=== PATIENT | female | born 1965 | race Caucasian/White ===

== ENCOUNTER 2016-11-10 20:55 | Inpatient (IN) | payer MEDICAID, SELFPAY ==
[~2016-11-10] VITALS: Ht 165.1 cm; Wt 106.3 kg
[2016-11-10] MEDS: LACTULOSE SOLN 20GM/30ML UDC PO SCH (23:20)
[2016-11-10] MEDS ORDERED: ONDANSETRON 4 MG VIAL IV PRN (23:20)
[2016-11-10] MEDS ORDERED: SALINE FLUSH 10 ML FLUSH PRN (23:20)
[2016-11-10] MEDS ORDERED: PHARMACY TO DOSE LEVAQUIN IV SCH (23:20)
[2016-11-11] VITALS (8 sets, daily range): BP systolic 120–149; RESP 14–20; TEMP 97.6–98; Ht 165.1 cm; Wt 106.3 kg
[2016-11-11] MEDS ORDERED: CEFTRIAXONE 1 GM VIAL ONE (00:02)
[2016-11-11] MEDS ORDERED: ZIPRASIDONE 20 MG INJ IM ONE (00:02)
[2016-11-11] MEDS ORDERED: SODIUM CHLORIDE 0.9% 100 ML IV ONE (00:02)
[2016-11-11] MEDS ORDERED: LACTULOSE SOLN 20GM/30ML UDC PO ONE (00:15)
[2016-11-11] MEDS: SALINE FLUSH 10 ML FLUSH SCH ×3 (02:54→20:07)
[2016-11-11] MEDS: LEVOFLOXACIN 750 MG/150 ML 150 ML IV SCH ×2 (02:56→10:03)
[2016-11-11] MEDS: SODIUM CHLORIDE 0.9% FLUSH BAG 500 ML IV SCH (02:57)
[2016-11-11] MEDS ORDERED: *PINK BRACELET XX ONE (04:35)
[2016-11-11] MEDS ORDERED: MISSING DOSE XX ONE (08:50)
[2016-11-11] MEDS: BUPROPION XL 150 MG TAB PO SCH (10:02)
[2016-11-11] MEDS: LACTULOSE SOLN 20GM/30ML UDC PO SCH ×3 (10:02→20:07)
[2016-11-11] MEDS: KCL CR 20 MEQ TAB PO SCH (10:03)
[2016-11-11] MEDS: *HOME MEDS KEPT IN PHARMACY XX SCH ×2 (10:03→20:00)
[2016-11-11] MEDS: Furosemide 40 MG TAB PO SCH (10:03)
[2016-11-12 03:48] VITALS: BP_SYST 131; RESP 16; TEMP 98.3
[2016-11-12] MEDS: SODIUM CHLORIDE 0.9% FLUSH BAG 500 ML IV SCH (06:45)
[2016-11-12 07:22] VITALS: BP_SYST 133; RESP 18; TEMP 97.6
[2016-11-12] MEDS: *HOME MEDS KEPT IN PHARMACY XX SCH ×2 (08:00→20:00)
[2016-11-12] MEDS: SALINE FLUSH 10 ML FLUSH SCH ×2 (09:34→20:28)
[2016-11-12] MEDS: LACTULOSE SOLN 20GM/30ML UDC PO SCH ×3 (09:35→20:28)
[2016-11-12] MEDS: LEVOFLOXACIN 750 MG/150 ML 150 ML IV SCH (09:35)
[2016-11-12] MEDS: BUPROPION XL 150 MG TAB PO SCH (09:35)
[2016-11-12] MEDS: KCL CR 20 MEQ TAB PO SCH (09:35)
[2016-11-12] MEDS: Furosemide 40 MG TAB PO SCH (09:35)
[2016-11-12 10:49] VITALS: BP_SYST 139; RESP 18; TEMP 97.5
[2016-11-12 14:56] VITALS: BP_SYST 143; RESP 18; TEMP 97.4
[2016-11-12 19:20] VITALS: BP_SYST 130; RESP 16; TEMP 97.6
[2016-11-12 23:00] VITALS: BP_SYST 147; RESP 14; TEMP 97.9
[2016-11-13] MEDS: RIFAXIMIN 550 MG TAB PO SCH ×3 (00:34→20:24)
[2016-11-13 04:00] VITALS: BP_SYST 124; RESP 14; TEMP 98.2
[2016-11-13] MEDS: SODIUM CHLORIDE 0.9% FLUSH BAG 500 ML IV SCH (06:21)
[2016-11-13 07:07] VITALS: BP_SYST 133; RESP 16; TEMP 97.9
[2016-11-13] MEDS: *HOME MEDS KEPT IN PHARMACY XX SCH ×2 (08:00→20:00)
[2016-11-13] MEDS: LEVOFLOXACIN 750 MG/150 ML 150 ML IV SCH (08:25)
[2016-11-13] MEDS: BUPROPION XL 150 MG TAB PO SCH (08:27)
[2016-11-13] MEDS: SALINE FLUSH 10 ML FLUSH SCH ×2 (08:27→20:24)
[2016-11-13] MEDS: LACTULOSE SOLN 20GM/30ML UDC PO SCH ×3 (08:27→20:23)
[2016-11-13] MEDS: KCL CR 20 MEQ TAB PO SCH (08:27)
[2016-11-13] MEDS: Furosemide 40 MG TAB PO SCH (08:28)
[2016-11-13 10:39] VITALS: BP_SYST 130; RESP 16; TEMP 97.6
[2016-11-13 15:09] VITALS: BP_SYST 138; RESP 16; TEMP 98.2
[2016-11-13] MEDS ORDERED: [UNRECOGNIZED DRUG - OTHER] IV ONE (17:51)
[2016-11-13 19:12] VITALS: BP_SYST 137; RESP 18; TEMP 97.6
[2016-11-13] MEDS: OXYCODONE 5 MG TAB PO PRN (21:26)
[2016-11-13 23:22] VITALS: BP_SYST 124; RESP 18; TEMP 98
[2016-11-14] MEDS: OXYCODONE 5 MG TAB PO PRN ×2 (04:16→10:52)
[2016-11-14 04:19] VITALS: BP_SYST 108; RESP 18; TEMP 98
[2016-11-14] MEDS: SODIUM CHLORIDE 0.9% FLUSH BAG 500 ML IV SCH (05:43)
[2016-11-14 07:20] VITALS: BP_SYST 137; RESP 18; TEMP 97.6
[2016-11-14] MEDS: KCL CR 20 MEQ TAB PO SCH (07:57)
[2016-11-14] MEDS: BUPROPION XL 150 MG TAB PO SCH (07:57)
[2016-11-14] MEDS: RIFAXIMIN 550 MG TAB PO SCH (07:57)
[2016-11-14] MEDS: LACTULOSE SOLN 20GM/30ML UDC PO SCH ×2 (07:57→16:21)
[2016-11-14] MEDS: *HOME MEDS KEPT IN PHARMACY XX SCH ×2 (08:00→18:19)
[2016-11-14] MEDS: SALINE FLUSH 10 ML FLUSH SCH (08:05)
[2016-11-14 11:06] VITALS: BP_SYST 144; RESP 18; TEMP 97.4
[2016-11-14 14:57] VITALS: BP_SYST 136; RESP 16; TEMP 97.6
[2016-11-14 17:52] VITALS: BP_SYST 136; RESP 16; TEMP 97.6
== END 2016-11-14 18:27 | disposition home or self-care (01) | DRG 441 ==
LOC: ENRESERVDT → ENRESERVTM → ER 20:55 → ENPENDDIS 23:16 → EMR 23:16 → 5THW 11-11 01:40
PROVIDERS: ADMIT Family Medicine; ATTEND Family Medicine
DX: K72.90 Hepatic failure, unspecified without coma (principal); G93.41 Metabolic encephalopathy; D69.6 Thrombocytopenia, unspecified; R16.0 Hepatomegaly, not elsewhere classified; J44.9 Chronic obstructive pulmonary disease, unspecified; E66.9 Obesity, unspecified; Z68.38 Body mass index [BMI] 38.0-38.9, adult; K74.60 Unspecified cirrhosis of liver; B19.20 Unspecified viral hepatitis C without hepatic coma; F15.10 Other stimulant abuse, uncomplicated; F12.10 Cannabis abuse, uncomplicated; F10.10 Alcohol abuse, uncomplicated
CPT/HCPCS: 36415; 71010; 74150; 74183; 80053; 80307; 80320; 81001; 82105; 82140; 82553; 82607; 82728; 82746; 82947; 83010; 83540; 83605; 83615; 84466; 84484; 85025; 85046; 85610; 87040; 87088; 93005; 94799; 96365; 96372; 99222; 99232; 99233